=== PATIENT | female | born 1990 | race Caucasian/White ===

== ENCOUNTER 2016-12-07 08:58 | Emergency (ER) | payer BC ==
[2016-12-07 09:03] VITALS: BP 102/66
--- NOTE | 2016-12-07 09:21 | EDM.PDOC ---
ED HPI GENERAL MEDICAL PROBLEM - General Chief Complaint: General Stated Complaint: unable to remove tampon Time Seen by Provider: 12/07/16 09:00 - History of Present Illness INITIAL COMMENTS - FREE TEXT/NARRATIVE: Delivered baby boy on November 03. Tampon placed yesterday late afternoon. Tried to remove tampon this morning and it was lodged in too far. Her also tried and was unable to remove it. No abdominal or pelvic pain. No nausea. No fever. Onset: Today Location: Reports: Pelvis Quality: Reports: Other (No pain) Improves with: Reports: None Worsens with: Reports: None - Related Data Allergies Allergy/AdvReac Type Severity Reaction Status Date / Time Penicillins Allergy Other Verified 12/07/16 09:18 Home Meds: Home Meds Citalopram [Celexa] 20 mg PO DAILY 12/07/16 [History] ED ROS GENERAL - Review of Systems Review Of Systems: See Below ED EXAM, GENERAL - Physical Exam Exam: See Below GI/Abdominal: Soft, Non-Tender (Female) Exam: Normal External Exam, Other (Tampon deep in the vagina at the posterior side of the cervical.) Lymphatic: No Adenopathy (No inguinal lymphadenopathy) Course - Vital Signs Last Recorded V/S: Last Vital Signs Temp 97.7 F 12/07/16 09:00 Pulse 81 12/07/16 09:00 Resp 16 12/07/16 09:00 BP 102/66 12/07/16 09:00 Pulse Ox 100 12/07/16 09:00 Departure - Departure Time of Disposition: 09:22 Disposition: Home, Self-Care 01 Condition: good Clinical Impression: Retained tampon Qualifiers: Encounter type: initial encounter Qualified Code(s): T19.2XXA - Foreign body in vulva and vagina, initial encounter - Discharge Information Instructions: Vaginal Foreign Body Referrals: Isela Dudley, [employer] [Primary Care Provider] - Forms: ED Department Discharge
== END 2016-12-07 09:37 | disposition home or self-care (01) ==
LOC: LL.ED 08:58
DX: T19.2XXA Foreign body in vulva and vagina, initial encounter (principal); Z88.0 Allergy status to penicillin; Z79.899 Other long term (current) drug therapy
CPT/HCPCS: 99283